=== PATIENT | male | born 1990 | race Caucasian/White ===

== ENCOUNTER 2016-09-02 20:57 | Emergency (ER) | payer OTHER ==
[2016-09-02] MEDS ORDERED: MORPHINE IV ONE (21:38)
--- NOTE | 2016-09-02 21:41 | Emergency Department Report ---
HPI - General Chief Complaint: Pain General Time Seen by Provider: 09/02/16 21:33 - HPI HPI: 26-year-old male presents to the emergency department, driven in by friend, with complaint of left testicular pain that began about 8 PM this evening, about 1-1/2 hours ago. There was no trauma. 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 He did not take anything for symptoms prior to presentation. He does not have a primary care doctor. He denies any past medical history. It is associated with some nausea and one episode of vomiting. It is 10 out of 10, deep aching pain. ED Past Medical Hx - Past Medical History Previous Medical History?: No - Surgical History Past Surgical History?: No - Social History Smoking Status: Current Some Day Smoker Substance Use Type: Alcohol ED Review of Systems ROS: Stated complaint: SEVERE ABD/TESTICULAR PAIN Other details as noted in HPI Comment: All other systems reviewed and negative Constitutional: denies: chills, fever Eyes: denies: eye pain, eye discharge, vision change ENT: denies: ear pain, throat pain Respiratory: denies: cough, shortness of breath, wheezing Cardiovascular: denies: chest pain, palpitations Gastrointestinal: abdominal pain, nausea, vomiting Genitourinary: testicular pain. denies: discharge Musculoskeletal: denies: back pain, joint swelling, arthralgia Skin: denies: rash, lesions Neurological: denies: headache, weakness, paresthesias Physical Exam - Physical Exam Vital Signs: Vital Signs 09/02/16 21:25 Temperature 97.8 F Pulse Rate 73 Respiratory 18 Rate Blood Pressure 158/113 O2 Sat by Pulse 99 Oximetry Physical Exam: GENERAL: The patient is well-developed well-nourished. Patient appears severely uncomfortable, rolling around on the gurney. HEENT: Normocephalic. Atraumatic. Extraocular motions are intact. Patient has moist mucous membranes. NECK: Supple. Trachea is midline. CHEST/LUNGS: Clear to auscultation. There is no respiratory distress noted. HEART/CARDIOVASCULAR: Regular. There is no tachycardia. There is no gallop rub or murmur. ABDOMEN: Abdomen is soft, nontender. Patient has normal bowel sounds. There is no abdominal distention. : No palpable inguinal hernias. There is some tenderness to palpation to the left testicle and scrotum but no obvious abnormalities. SKIN: Skin is warm and dry. NEURO: The patient is awake, alert, and oriented. The patient is cooperative. The patient has no focal neurologic deficits. The patient has normal speech. MUSCULOSKELETAL: There is no tenderness or deformity. There is no limitation range of motion. There is no evidence of acute injury. ED Course Vital Signs 09/02/16 21:25 Temperature 97.8 F Pulse Rate 73 Respiratory 18 Rate Blood Pressure 158/113 O2 Sat by Pulse 99 Oximetry ED Medical Decision Making - Lab Data Result diagrams: 09/02/16 Unknown 09/02/16 Unknown - Radiology Data Radiology results: report reviewed Testicular and scrotal ultrasound and Doppler does not show any signs of torsion and is a normal examination. - Medical Decision Making 26-year-old male presents to the emergency department with acute left testicular pain. On examination the testicle is very painful to palpation but no obvious deformity. I attempted to detorse the testicle as it appeared to be most likely was causing the acute discomfort. An IV was placed and the patient was given a dose of morphine. He was sent for a stat testicular Doppler ultrasound that came back resulted as normal. By that time the patient's pain had completely resolved down to 0 out of 10 and the patient was asymptomatic. Patient's labs appeared unremarkable. Patient will be discharged home to follow -up with a primary care doctor. Return with any return of symptoms or any acute distress. - Differential Diagnosis testicular torsion, epididymitis, hernia Critical Care Time: No Critical care attestation.: If time is entered above; I have spent that time in minutes in the direct care of this critically ill patient, excluding procedure time. ED Disposition Clinical Impression: Testicular pain, left Disposition: DISCHARGED TO HOME OR SELFCARE Is pt being admited?: No Condition: Stable Instructions: Testicular Self-examination (ED), Testicle Pain (ED) Additional Instructions: Please follow-up with a primary care doctor and return to the ER with any worsening of her symptoms or any acute distress. Referrals: PRIMARY ANDRE, [Primary Care Provider] - 3-5 Days XAVIER BRODY JR, MD [Staff Physician] - 3-5 Days [facility] [Outside] - 3-5 Days Time of Disposition: 01:25
[2016-09-02 22:14] LABS: Basophils % (Auto) 0.6 % (0.0-1.8); Eosinophils % (Auto) 0.3 % (0.0-4.3); Hematocrit 44.9 % (35.5-45.6); Hemoglobin 14.7 gm/dl (11.8-15.2); Mean Corpuscular HGB Conc 33 % (32-34); Mean Corpuscular Hemoglobin 29 pg (28-32); Mean Corpuscular Volume 87 fl (84-94); Platelet Count 270 K/mm3 (140-440); Red Blood Count 5.16 M/mm3 (3.65-5.03); White Blood Count 15.1 K/mm3 (4.5-11.0)
[2016-09-02 22:19] LABS: Anion Gap 18 mmol/L; Blood Urea Nitrogen 16 mg/dL (9-20); Calcium 9.1 mg/dL (8.4-10.2); Carbon Dioxide 25 mmol/L (22-30); Chloride 99.2 mmol/L (98-107); Glucose 148 mg/dL (75-100); Potassium 3.6 mmol/L (3.6-5.0); Sodium 139 mmol/L (137-145)
[2016-09-02 22:21] LABS: Alanine Aminotransferase 25 units/L (7-56); Albumin 4.3 g/dL (3.9-5); Albumin/Globulin Ratio 1.7 %; Alkaline Phosphatase 89 units/L (35-129); Bilirubin,Total 0.5 mg/dL (0.1-1.2); Total Protein 6.9 g/dL (6.3-8.2)
[2016-09-02 22:36] LABS: Bilirubin,Direct < 0.2 mg/dL (0-0.2); Bilirubin,Indirect 0.3 mg/dL
--- NOTE | 2016-09-02 22:47 | Ultrasound Report ---
FINAL REPORT EXAM: US TESTICULAR DOPPLER COMP HISTORY: left testicular pain and swelling TECHNIQUE: Ultrasound of scrotum PRIORS: None. FINDINGS: Examination of the testicles demonstrates both to be normal in size and normal and homogeneous in echogenicity with normal blood flow bilaterally. No focal abnormality is noted in either testicle. The right testicle measures 4.5 x 2.2 x 3.2 cm and the left measures 4.1 x 1.8 x 2.9 cm. Both epididymides appear normal in size and echogenicity with normal blood flow. No focal abnormality is noted. No evidence for hydroceles or varicoceles are present bilaterally. IMPRESSION: Negative testicular ultrasound
[2016-09-03 01:57] VITALS: BP 132/69
[2016-09-03 02:03] LABS: Bacteria,Urine 1+ /HPF (Negative); Bilirubin,Urine NEG (Negative); Blood,Urine MOD (Negative); Ketones,Urine NEG (Negative); Leukocyte Esterase,Urine NEG (Negative); Mucus,Urine FEW /HPF; Nitrite,Urine NEG (Negative); Protein,Urine <15 mg/dL mg/dL (Negative); Urobilinogen,Urine < 2.0 mg/dL (<2.0)
== END 2016-09-03 01:55 | disposition home or self-care (01) ==
LOC: ED 20:57
DX: N50.812 Left testicular pain (principal); F17.200 Nicotine dependence, unspecified, uncomplicated
CPT/HCPCS: 36415; 80048; 80074; 81001; 85025; 93975; 96374; 99284; J2270